=== PATIENT | female | born 1995 | race Caucasian/White ===

== ENCOUNTER → 2016-09-19 | Outpatient (CLI) | payer OTHER ==
[2016-09-19 20:48] LABS: BASO % 0.3 % (0.0-1.0); EOS # 0.1 K/mm3 (0.0-0.50); EOS % 0.8 % (0.0-3.0); LARGE UNSTAINED CELL # 0.2 K/mm3 (0.0-0.4); LARGE UNSTAINED CELL % 1.1 % (0.0-4.0); LYMPH # 2.6 K/mm3 (1.5-6.5); LYMPH % 17.9 % (24.0-44.0); MEAN CORPUSCULAR HEMOGLOBIN 28.5 pg (27.0-33.0); MEAN CORPUSCULAR HGB CONC 33.5 g/dl (32.0-36.5); MEAN CORPUSCULAR VOLUME 85.1 fl (80.0-96.0); MONO # 0.9 K/mm3 (0.0-0.8); MONO % 6.4 % (0.0-5.0); NEUTROPHILS # 10.1 K/mm3 (1.8-7.7); NEUTROPHILS % 73.6 % (36.0-66.0); PLATELET COUNT, AUTOMATED 286 k/mm3 (150-450); RED CELL DISTRIBUTION WIDTH 12.6 % (11.5-14.5); WHITE BLOOD COUNT 13.7 K/mm3 (4.0-10.0)
[2016-09-22 11:07] LABS: HBsAg Prenatal NEGATIVE (NEGATIVE)
[2016-09-22 14:10] LABS: CONTROL LINE INT CTR LINE PRESENT; HIV SCRN NEGATIVE (NEGATIVE); HIV SCRN1 NEGATIVE (NEGATIVE)
== END | disposition home or self-care (01) ==
LOC: M LRY 15:03
PROVIDERS: ATTEND Obstetrics & Gynecology
DX: Z34.81 Encounter for supervision of other normal pregnancy, first trimester (principal); Z36 Encounter for antenatal screening of mother; Z3A.00 Weeks of gestation of pregnancy not specified

== ENCOUNTER → 2016-09-29 | Outpatient (REF) | payer OTHER | END | disposition home or self-care (01) | LOC: M LAB REF 17:05 | PROVIDERS: ATTEND Obstetrics & Gynecology | DX: Z34.01 Encounter for supervision of normal first pregnancy, first trimester (principal); Z36 Encounter for antenatal screening of mother; Z3A.00 Weeks of gestation of pregnancy not specified ==

== ENCOUNTER → 2016-11-10 | Outpatient (CLI) | payer OTHER | LOC: M SMT 10:03 | PROVIDERS: ATTEND Obstetrics & Gynecology | DX: Z34.82 Encounter for supervision of other normal pregnancy, second trimester (principal) ==

== ENCOUNTER → 2016-11-14 | Outpatient (CLI) | payer OTHER | LOC: M LAB 07:30 | PROVIDERS: ATTEND Obstetrics & Gynecology | DX: Z34.81 Encounter for supervision of other normal pregnancy, first trimester (principal); Z36 Encounter for antenatal screening of mother; Z3A.00 Weeks of gestation of pregnancy not specified ==

== ENCOUNTER → 2016-12-04 | Outpatient (CLI) | payer OTHER ==
--- NOTE | 2016-12-05 03:29 | REP ---
Clinical: Anatomical evaluation. Comparison: None . Findings: Examination demonstrates a single live intrauterine in cephalic presentation. motion is identified by technologist. Placenta is noted posteriorly and grade 02/00 without evidence for placenta previa or abruption. Amniotic fluid volume is normal. Cervix measures 3.7 cm in length and appears closed. Gestational age by LMP 19 weeks 2 days with DAVION 04/28/1972 . Gestational age by current measurements 20 weeks 0 days with DAVION 04/23/2017 . FHR equals 144 beats per minute. BPD 4.6 cm 19 weeks 6-day HC 17.4 cm 20 weeks 0 days AC 15.1 cm 20 weeks 2 days FL 3.0 cm 19 weeks 2 days HL 3.2 cm 20 weeks 4 days HC/AC ratio 1.15 Estimated weight 319 grams ( 68th percentile). Anatomical assessment demonstrates normal structures including cranium, choroid plexus, cavum, cerebellum/posterior fossa, facial features, lungs, four-chamber heart/ventricular outflow tracts, diaphragm, stomach, cord insertion/three-vessel cord, kidneys/bladder, spine, and extremities. Impression: Single live intrauterine in cephalic presentation demonstrating appropriate interval growth. Anatomical assessment is complete and normal. Nuchal cord cannot be excluded. Signed by Ric Cuba MD 12/05/2016 03:21 A
== END ==
LOC: M RAD 10:56
PROVIDERS: ATTEND Obstetrics & Gynecology
DX: Z36 Encounter for antenatal screening of mother (principal); Z3A.20 20 weeks gestation of pregnancy

== ENCOUNTER → 2017-01-20 | Outpatient (CLI) | payer OTHER ==
[2017-01-20 13:07] LABS: BASO % 0.1 % (0.0-1.0); EOS # 0.1 K/mm3 (0.0-0.50); EOS % 0.6 % (0.0-3.0); LARGE UNSTAINED CELL # 0.1 K/mm3 (0.0-0.4); LARGE UNSTAINED CELL % 0.8 % (0.0-4.0); LYMPH # 1.5 K/mm3 (1.5-6.5); LYMPH % 9.2 % (24.0-44.0); MEAN CORPUSCULAR HEMOGLOBIN 29.5 pg (27.0-33.0); MEAN CORPUSCULAR HGB CONC 33.9 g/dl (32.0-36.5); MONO # 0.5 K/mm3 (0.0-0.8); MONO % 3.1 % (0.0-5.0); NEUTROPHILS # 13.6 K/mm3 (1.8-7.7); NEUTROPHILS % 86.2 % (36.0-66.0); PLATELET COUNT, AUTOMATED 237 k/mm3 (150-450); RED CELL DISTRIBUTION WIDTH 13.5 % (11.5-14.5); WHITE BLOOD COUNT 15.8 K/mm3 (4.0-10.0)
== END ==
LOC: M SMT 09:11
PROVIDERS: ATTEND Specialist
DX: Z34.02 Encounter for supervision of normal first pregnancy, second trimester (principal); Z36 Encounter for antenatal screening of mother; Z3A.00 Weeks of gestation of pregnancy not specified

== ENCOUNTER → 2017-01-23 | Outpatient (CLI) | payer OTHER | LOC: M LAB 06:47 | PROVIDERS: ATTEND Specialist | DX: Z34.82 Encounter for supervision of other normal pregnancy, second trimester (principal); Z36 Encounter for antenatal screening of mother; Z3A.00 Weeks of gestation of pregnancy not specified ==

== ENCOUNTER → 2017-03-30 | Outpatient (CLI) | payer OTHER ==
[~2017-03-30] MED LIST: ACET50TA PO; ADVI200C5 PO; PRE-TAB3 PO
[2017-03-30 14:09] LABS: MEAN CORPUSCULAR HEMOGLOBIN 29.6 pg (27.0-33.0); MEAN CORPUSCULAR HGB CONC 33.8 g/dl (32.0-36.5); MEAN CORPUSCULAR VOLUME 87.4 fl (80.0-96.0); RED CELL DISTRIBUTION WIDTH 13.7 % (11.5-14.5); WHITE BLOOD COUNT 11.2 K/mm3 (4.0-10.0)
[2017-03-30 14:20] LABS: ALT/SGPT 19 U/L (12-78); AST/SGOT 18 U/L (15-37); BILIRUBIN,TOTAL 0.4 MG/DL (0.2-1.0); CREATININE FOR GFR 0.74 MG/DL (0.55-1.02); GLOMERULAR FILTRATION RATE > 60.0 (>60); URIC ACID 4.6 MG/DL (2.6-6.0)
== END ==
LOC: M SMT 09:11
PROVIDERS: ATTEND Specialist
DX: O13.3 Gestational [pregnancy-induced] hypertension without significant proteinuria, third trimester (principal); Z36 Encounter for antenatal screening of mother; Z3A.00 Weeks of gestation of pregnancy not specified

== ENCOUNTER → 2017-04-02 | Outpatient (CLI) | payer OTHER, SELFPAY ==
--- NOTE | 2017-04-02 15:20 | REP ---
Third trimester obstetric ultrasonography for mild to moderate preeclampsia , well being: There is a single intrauterine gestation in a vertex presentation. There is movement and cardiac activity. The heart rate is 144 beats per minute. The placenta is posterior without placenta previa or abruptio and is grade two maturity. The amniotic fluid volume subjectively is normal. The amniotic fluid index is 16.7 (7.6 - 24.8). The cervix is 3.8 cm length. The maternal adnexa and cul-de-sac are unremarkable. Gestational age by the ultrasound today is 35 weeks 6 days with an DAVION of 05/01/2017. The gestational age by the first ultrasound is 27 weeks 0 days and by LMP 36 weeks 2 days. weight is 2713 grams (5 pounds, 15 ounces). This is the 39th percentile for 36 weeks 2 days. Umbilical artery Doppler assessment: SD ratio 1.92 (1.8 - 2.8) Resistive index 0.4 a (a 0.59 - 0.75) Diastolic flow velocity 18.5 cm/sec. No further evaluation is requested or performed. The patient had a anatomy study previously with no anomalies. Signed by Ryne Angeles MD 04/02/2017 03:12 P
== END ==
LOC: M RAD 13:50
PROVIDERS: ATTEND Advanced Practice Midwife
DX: O14.03 Mild to moderate pre-eclampsia, third trimester (principal); Z36 Encounter for antenatal screening of mother; Z3A.35 35 weeks gestation of pregnancy

== ENCOUNTER → 2017-04-03 | Outpatient (REF) | payer OTHER | LOC: M LAB REF 10:34 | PROVIDERS: ATTEND Advanced Practice Midwife | DX: O13.3 Gestational [pregnancy-induced] hypertension without significant proteinuria, third trimester (principal); Z36 Encounter for antenatal screening of mother; Z3A.00 Weeks of gestation of pregnancy not specified ==

== ENCOUNTER 2017-04-04 22:37 | Outpatient (CLI) | payer OTHER ==
[~2017-04-04] VITALS: Ht 167.6 cm; Wt 115.0 kg
[2017-04-04 22:49] VITALS: BP 136/76
[2017-04-04 23:05] VITALS: BP 138/81
[2017-04-04] MEDS ORDERED: PRE-TAB3 PO (23:14)
[2017-04-04] MEDS ORDERED: ACET50TA PO (23:14)
[2017-04-04 23:20] VITALS: BP 142/79
[2017-04-04 23:36] VITALS: BP 151/79
[2017-04-04 23:50] VITALS: BP 151/72
[2017-04-04 23:54] VITALS: BP 151/72
[2017-04-05 00:05] VITALS: BP 141/67
[2017-04-05] MEDS ORDERED: CETIRIZINE (ZyrTEC) 10 MG TAB PO ONE (00:15)
[2017-04-05 00:20] VITALS: BP 145/74
[2017-04-05 00:31] LABS: MEAN CORPUSCULAR HGB CONC 34.3 g/dl (32.0-36.5); MEAN CORPUSCULAR VOLUME 84.6 fl (80.0-96.0); RED CELL DISTRIBUTION WIDTH 13.5 % (11.5-14.5); WHITE BLOOD COUNT 12.3 K/mm3 (4.0-10.0)
[2017-04-05 00:47] VITALS: BP 137/76
[2017-04-05 01:02] VITALS: BP 141/73
[2017-04-05 01:06] LABS: ALT/SGPT 19 U/L (12-78); AST/SGOT 22 U/L (15-37); BILIRUBIN,TOTAL 0.4 MG/DL (0.2-1.0); CREATININE FOR GFR 0.67 MG/DL (0.55-1.02); GLOMERULAR FILTRATION RATE > 60.0 (>60); URIC ACID 4.4 MG/DL (2.6-6.0)
[2017-04-05 01:18] VITALS: BP 134/80
== END 2017-04-05 01:26 | disposition home or self-care (01) ==
LOC: M LDO 22:37
PROVIDERS: ATTEND Specialist
DX: O14.93 Unspecified pre-eclampsia, third trimester (principal); R51 Headache; Z3A.36 36 weeks gestation of pregnancy

== ENCOUNTER 2017-04-07 08:02 | Inpatient (IN) | payer OTHER ==
[~2017-04-07] VITALS: Ht 168.9 cm; Wt 116.0 kg
[2017-04-07] VITALS (28 sets, daily range): BP systolic 127–180; BP diastolic 60–90
[~2017-04-07 08:02] MED LIST changes: -ADVI200C5 PO
--- NOTE | 2017-04-07 09:51 | HPE ---
DATE OF ADMISSION: 04/07/2017 Екатерина is a 22-year-old, 1, para 0 at 37 weeks gestation with an estimated date of confinement (EDC) of 04/28/2017, based on last menstrual period and confirmed by 9-week ultrasound. She presents to labor and delivery per consult with Dr. Melvin Romero for induction of labor due to preeclampsia. She does report mild headache that has been relieved with Tylenol. She denies blurred vision, right upper quadrant pain and epigastric discomfort. She does report positive movement. Denies vaginal bleeding, leakage of fluid and regular contractions. Her fetus has been active. care initiated at [facility] in the first trimester. course complicated by a history of polycystic ovarian syndrome, rubella nonimmune and preeclampsia with recent diagnosis. OBSTETRICAL HISTORY: Primigravida. OBSTETRICAL LABORATORIES: Blood type B negative, antibody screen negative, rubella equivocal, VDRL nonreactive. Urine culture no growth. Hep B surface antigen negative, HIV negative. Hep C antibody nonreactive. Gonorrhea and chlamydia negative. Gestational diabetic screening elevated at 144 with a 3-hour glucose tolerance test returning normal results. Fasting 87, 1-hour 166, 2-hour 178, 3-hour 110. Her GBS is negative. She did undergo a recent pre-eclamptic profile, returned 24-hour urine of 571 mg protein. Pre-eclamptic labs were normal. PAST MEDICAL HISTORY: 1. PCOS. 2. Seasonal allergies. 3. Childhood varicella. SURGERIES: None. FAMILY HISTORY: Diabetes, hypertension, heart disease, thyroid dysfunction, breast cancer. SOCIAL HISTORY: The patient is . Her is at bedside and supportive. She is a nonsmoker. Denies alcohol and drug use. No history of any sexually transmitted infections. Denies history of abuse: physical, sexual and emotional. ALLERGIES: No known drug allergies. CURRENT MEDICATIONS: vitamins. OBJECTIVE: Temperature 98.5, pulse 88, respirations have not been recorded. Blood pressure 141/67. She is alert and oriented times three, smiling and talkative. heart rate 140 with moderate variability, positive accelerations observed. No decelerations. There is no pattern of regular contractions. Her abdomen is gravid, cephalic presentation. Estimated weight 7 pounds. Sterile vaginal exam: Fingertip dilated, 50% effaced, -3 station. ASSESSMENT: 1. Intrauterine at 37 weeks gestation. heart rate category one. 2. Preeclampsia. PLAN: Admit the patient to labor and delivery. Out of bed ad juan. Regular diet at this time. Laboratories, including a repeat pre-eclamptic profile. Saline lock. Misoprostol 50 mcg by mouth every 4 hours for cervical ripening. I did review risks related to induction, including increased risk of section, intolerance to labor, failed induction. The patient's questions were answered and herself and her decided to proceed with induction of labor at this time. I do anticipate cervical ripening.
[2017-04-07] MEDS: miSOPROStol 50 MCG 1/2 TAB (S0191) PO SCH ×2 (09:53→13:50)
[2017-04-07 10:03] LABS: MEAN CORPUSCULAR HEMOGLOBIN 29.3 pg (27.0-33.0); MEAN CORPUSCULAR HGB CONC 34.6 g/dl (32.0-36.5); MEAN CORPUSCULAR VOLUME 84.7 fl (80.0-96.0); RED CELL DISTRIBUTION WIDTH 13.3 % (11.5-14.5); WHITE BLOOD COUNT 13.3 K/mm3 (4.0-10.0)
[2017-04-07 11:23] LABS: ALT/SGPT 18 U/L (12-78); AST/SGOT 17 U/L (15-37); BILIRUBIN,TOTAL 0.4 MG/DL (0.2-1.0); CREATININE FOR GFR 0.67 MG/DL (0.55-1.02); GLOMERULAR FILTRATION RATE > 60.0 (>60); URIC ACID 5.6 MG/DL (2.6-6.0)
[2017-04-07] MEDS ORDERED: LR 1,000 ML IV SCH (17:46)
[2017-04-07] MEDS ORDERED: OXYTOCIN DRIP 30 UNITS in APPROPRIATE DILUENT 1 EA IV SCH (18:00)
[2017-04-07] MEDS ORDERED: FENTANYL 2MCG/ML ROPIVACAINE 0.2% IN 0.9% NACL 200ML IVBAG As Ordered ONE (18:45)
[2017-04-08] VITALS (17 sets, daily range): BP systolic 133–169; BP diastolic 66–105
[2017-04-08] MEDS ORDERED: OXYTOCIN DRIP 30 UNITS in APPROPRIATE DILUENT 1 EA IV SCH (02:53)
--- NOTE | 2017-04-08 02:57 | PAIN ---
DATE: 04/08/2017 Екатерина is a 22-year-old 1, para 1-0-0-1 now who was admitted to labor and delivery for induction of labor due to preeclampsia. Misoprostol and intravenous (IV) Pitocin was utilized to induce labor. She did utilize an epidural for her labor coping. She progressed to full dilation at 0046 hours, passive descent was employed until she had an urge to push. She pushed to a normal spontaneous vaginal delivery of a live male infant in occiput anterior (OA) position with restitution to left occiput transverse (LOT) position at 0218 hours There was no nuchal cord. The shoulders delivered with gentle downward traction and the corpus immediately followed. The was placed on the maternal abdomen, crying and active. His mouth and nares were bulb suctioned. The cord was clamped times two once pulsations ceased and cut by the father of the baby. A spontaneous expulsion of an intact placenta with three-vessel cord by Almonte mechanism was at 0225 hours. Uterine hemostasis achieved with IV Pitocin rapid infusion and uterine fundal massage. Estimated blood loss 250 mL. Perineum and vagina were inspected, noted to have a second-degree midline laceration. The laceration was repaired with #3-0 Rapide in the usual fashion. [place] male weighed 7 pounds 5 ounces, 3314 grams, score 8 and 9. Mom plans to breastfeed her son, and the family have named him Francis. At the close of delivery, lap counts, instrument counts and needle counts were correct and verified. [facility]
[2017-04-08] MEDS ORDERED: RHOGAM 300 MCG (1500 IU) INJ (J2790) IM SCH (03:00)
[2017-04-08] MEDS ORDERED: ANUSOL HC CREAM 30GM TOP PRN (03:00)
[2017-04-08] MEDS ORDERED: MEASLES,MUMPS,RUBELLA VACCINE INJ (MMR-II) (90707) SC SCH (03:00)
[2017-04-08] MEDS ORDERED: DOCUSATE SODIUM 100 MG CAP PO PRN (03:00)
[2017-04-08] MEDS ORDERED: DIBUCAINE 1% OINTMENT 30GM TOP PRN (03:00)
[2017-04-08] MEDS: IBUPROFEN 800 MG TAB PO PRN ×2 (04:51→18:41)
[2017-04-08] MEDS: PRENATAL VITAMINS CHEWABLE TABLET PO SCH (09:25)
[2017-04-08] MEDS: ACETAMINOPHEN 500 MG TAB PO PRN (11:23)
[2017-04-09 01:43] VITALS: BP 132/69
[2017-04-09 05:34] VITALS: BP 146/80
[2017-04-09] MEDS: IBUPROFEN 800 MG TAB PO PRN ×2 (05:41→16:25)
[2017-04-09] MEDS: PRENATAL VITAMINS CHEWABLE TABLET PO SCH (08:58)
[2017-04-09 10:00] VITALS: BP 158/82
[2017-04-09 14:00] VITALS: BP 122/75
[2017-04-09 17:57] VITALS: BP 153/70
[2017-04-09 22:30] VITALS: BP 136/80
[2017-04-10 02:15] VITALS: BP 133/60
[2017-04-10] MEDS: ACETAMINOPHEN 500 MG TAB PO PRN (05:50)
[2017-04-10 06:09] VITALS: BP 145/93
[2017-04-10] MEDS: PRENATAL VITAMINS CHEWABLE TABLET PO SCH (09:29)
[2017-04-10] MEDS ORDERED: ADVI200C5 PO (10:03)
[2017-04-10] MEDS ORDERED: ACET50TA PO (10:03)
[2017-04-10 10:11] VITALS: BP 133/78
== END 2017-04-10 10:48 | disposition home or self-care (01) | DRG 560 ==
LOC: M LDI 08:02 → M OBS 04-08 04:40
PROVIDERS: ADMIT Advanced Practice Midwife; ATTEND Advanced Practice Midwife
PROC: 3E0P7GC Introduction of Other Therapeutic Substance into Female Reproductive, Via Natural or Artificial Opening (ICD-10-PCS; 2017-04-07)
PROC: 10E0XZZ Delivery of Products of Conception, External Approach (ICD-10-PCS; principal; 2017-04-08)
PROC: 0KQM0ZZ Repair Perineum Muscle, Open Approach (ICD-10-PCS; 2017-04-08)
PROC: 3E0234Z Introduction of Serum, Toxoid and Vaccine into Muscle, Percutaneous Approach (ICD-10-PCS; 2017-04-08)
DX: O14.94 Unspecified pre-eclampsia, complicating childbirth (principal); E28.2 Polycystic ovarian syndrome; O70.1 Second degree perineal laceration during delivery; Z3A.37 37 weeks gestation of pregnancy; Z29.13 Encounter for prophylactic Rho(D) immune globulin; O99.284 Endocrine, nutritional and metabolic diseases complicating childbirth; Z37.0 Single live birth

== ENCOUNTER → 2018-08-27 | Outpatient (REF) | payer OTHER ==
[~2018-08-27] MED LIST changes: -ACET50TA PO; +ADVI200C5 PO; +MAPA500T2 PO
== END ==
LOC: M LAB REF 17:19
PROVIDERS: ATTEND Advanced Practice Midwife
DX: Z12.4 Encounter for screening for malignant neoplasm of cervix (principal)

== ENCOUNTER → 2022-07-28 | Outpatient (CLI) | payer MEDICARE, OTHER ==
[2022-07-28 15:40] LABS: HEMOGLOBIN 13.3 g/dl (12.0-15.5); MEAN CORPUSCULAR HEMOGLOBIN 28.5 pg (27.0-33.0); MEAN CORPUSCULAR HGB CONC 33.3 g/dl (32.0-36.5); MEAN CORPUSCULAR VOLUME 85.7 fl (80.0-96.0); PLATELET COUNT, AUTOMATED 273 10^3/uL (150-450); RED BLOOD COUNT 4.67 10^6/uL (4.00-5.40); WHITE BLOOD COUNT 15.5 10^3/uL (4.0-10.0)
[2022-07-28 15:41] LABS: URIC ACID 3.3 MG/DL (3.1-7.8)
[2022-07-28 15:44] LABS: ALT/SGPT 32 U/L (7.0-40); AST/SGOT 25 U/L (<34); BILIRUBIN,TOTAL 0.7 MG/DL (0.3-1.2); CREATININE FOR GFR 0.61 MG/DL (0.55-1.30); GLOMERULAR FILTRATION RATE > 60.0 (>60); LDH LACTATE DEHYDROGENASE 164 U/L (120-246)
[2022-07-28 15:52] LABS: TOTAL PROTEIN,RANDOM URINE 11.1 MG/DL (0.0-14.0)
[2022-07-28 15:57] LABS: CREATININE,RANDOM URINE 96.1 MG/DL
[2022-07-28 16:14] LABS: HIV 1&2 SCREEN CENTAUR NEGATIVE (NEGATIVE)
[2022-07-28 16:22] LABS: HEPATITIS C VIRUS ABY INDEX 0.2 INDEX (<0.8)
[2022-07-28 17:23] LABS: GC DNA AMPLIFICATION NEGATIVE (NEGATIVE)
== END ==
LOC: M PLALAB 13:44
PROVIDERS: ATTEND Advanced Practice Midwife
DX: Z34.91 Encounter for supervision of normal pregnancy, unspecified, first trimester (principal); Z36.89 Encounter for other specified antenatal screening

== ENCOUNTER → 2022-09-30 | Outpatient (CLI) | payer OTHER | LOC: M WHC 11:14 | PROVIDERS: ATTEND Advanced Practice Midwife | DX: Z34.82 Encounter for supervision of other normal pregnancy, second trimester (principal); Z3A.20 20 weeks gestation of pregnancy ==

== ENCOUNTER → 2022-10-23 | Outpatient (CLI) | payer OTHER | LOC: M WHC 14:22 | PROVIDERS: ATTEND Advanced Practice Midwife | DX: Z34.82 Encounter for supervision of other normal pregnancy, second trimester (principal); Z3A.23 23 weeks gestation of pregnancy ==

== ENCOUNTER → 2022-11-13 | Outpatient (CLI) | payer OTHER ==
[2022-11-13 14:42] LABS: HEMOGLOBIN 11.9 g/dl (12.0-15.5); MEAN CORPUSCULAR HEMOGLOBIN 28.5 pg (27.0-33.0); MEAN CORPUSCULAR HGB CONC 31.3 g/dl (32.0-36.5); MEAN CORPUSCULAR VOLUME 91.1 fl (80.0-96.0); PLATELET COUNT, AUTOMATED 262 10^3/uL (150-450); RED BLOOD COUNT 4.17 10^6/uL (4.00-5.40); WHITE BLOOD COUNT 14.6 10^3/uL (4.0-10.0)
== END ==
LOC: M PLALAB 09:58
PROVIDERS: ATTEND Advanced Practice Midwife
DX: Z34.82 Encounter for supervision of other normal pregnancy, second trimester (principal)

== ENCOUNTER → 2022-11-19 | Outpatient (CLI) | payer OTHER ==
[~2022-11-19] MED LIST changes: +ASPI81CH33 PO
== END ==
LOC: M LAB 07:43
PROVIDERS: ATTEND Advanced Practice Midwife
DX: O99.810 Abnormal glucose complicating pregnancy (principal)

== ENCOUNTER 2022-11-24 18:13 | Outpatient (CLI) | payer OTHER, MEDICARE ==
[~2022-11-24] VITALS: Ht 165.1 cm; Wt 131.0 kg
[~2022-11-24 18:13] MED LIST changes: -ASPI81CH33 PO
[2022-11-24 18:39] VITALS: BP 121/60
[2022-11-24] MEDS ORDERED: ASPI81CH33 PO (18:48)
[2022-11-24] MEDS ORDERED: HOME MED LIST COMPLETE! XX SCH (18:50)
== END 2022-11-24 19:15 | disposition home or self-care (01) ==
LOC: M LDO 18:13
PROVIDERS: ATTEND Advanced Practice Midwife
DX: O36.8130 Decreased fetal movements, third trimester, not applicable or unspecified (principal); Z3A.28 28 weeks gestation of pregnancy; Z87.59 Personal history of other complications of pregnancy, childbirth and the puerperium
CPT/HCPCS: 59025; G0463

== ENCOUNTER → 2023-01-13 | Outpatient (CLI) | payer OTHER ==
[~2023-01-13] MED LIST changes: +ASPI81CH33 PO
== END ==
LOC: M WHC 11:26
PROVIDERS: ATTEND Obstetrics & Gynecology
DX: O24.419 Gestational diabetes mellitus in pregnancy, unspecified control (principal)

== ENCOUNTER → 2023-01-15 | Outpatient (REF) | payer OTHER, MEDICARE | LOC: M SFHCWAGY 12:56 | PROVIDERS: ATTEND Advanced Practice Midwife | DX: O24.415 Gestational diabetes mellitus in pregnancy, controlled by oral hypoglycemic drugs (principal) ==

== ENCOUNTER 2023-01-29 08:57 | Inpatient (IN) | payer MEDICARE, OTHER ==
[2023-01-29] VITALS (16 sets, daily range): BP systolic 112–145; BP diastolic 55–81
[~2023-01-29] VITALS: Ht 165.1 cm; Wt 127.1 kg
[2023-01-29] MEDS ORDERED: METF10004 PO (09:23)
[2023-01-29] MEDS ORDERED: HOME MED LIST COMPLETE! XX SCH (09:45)
[2023-01-29 10:50] LABS: HEMATOCRIT 37.7 % (36.0-47.0); HEMOGLOBIN 12.5 g/dl (12.0-15.5); MEAN CORPUSCULAR HEMOGLOBIN 28.4 pg (27.0-33.0); MEAN CORPUSCULAR HGB CONC 33.2 g/dl (32.0-36.5); MEAN CORPUSCULAR VOLUME 85.7 fl (80.0-96.0); PLATELET COUNT, AUTOMATED 243 10^3/uL (150-450); WHITE BLOOD COUNT 14.9 10^3/uL (4.0-10.0)
[2023-01-29 11:02] LABS: TOTAL PROTEIN,RANDOM URINE 9.4 MG/DL (0.0-14.0)
[2023-01-29 11:07] LABS: CREATININE,RANDOM URINE 60.1 MG/DL
[2023-01-29 11:18] LABS: URIC ACID 4.5 MG/DL (3.1-7.8)
[2023-01-29 11:20] LABS: LDH LACTATE DEHYDROGENASE 151 U/L (120-246)
[2023-01-29 11:21] LABS: ALT/SGPT 17 U/L (7.0-40); AST/SGOT 16 U/L (<34); BILIRUBIN,TOTAL 0.6 MG/DL (0.3-1.2); CREATININE FOR GFR 0.66 MG/DL (0.55-1.30); GLOMERULAR FILTRATION RATE > 60.0 (>60)
[2023-01-29] MEDS ORDERED: LACTATED RINGER'S 1000 ML IV STA (13:22)
[2023-01-29] MEDS ORDERED: TRANEXAMIC ACID INJection 1,000 MG in NS 100 ML IV PRN (13:25)
[2023-01-29] MEDS ORDERED: LR 1,000 ML IV SCH (13:25)
[2023-01-29] MEDS ORDERED: CARBOPROST TROMETHAMINE 250 MCG/ML AMP IM PRN (13:25)
[2023-01-29] MEDS ORDERED: LIDOCAINE 1% MDV 20ML VIAL INFIL PRN (13:25)
[2023-01-29] MEDS ORDERED: OXYTOCIN DRIP 30 UNITS in IV 1 EA IV PRN (13:25)
[2023-01-29] MEDS: miSOPROStol 50MCG 1/2 TABLET SL SCH ×2 (13:42→18:20)
[2023-01-29] MEDS ORDERED: OXYTOCIN DRIP 30 UNITS in IV 1 EA IV SCH (20:25)
[2023-01-30] VITALS (15 sets, daily range): BP systolic 109–176; BP diastolic 53–84; O2SAT 98
[2023-01-30] MEDS ORDERED: DOCUSATE SODIUM 100MG CAPSULE PO PRN (05:00)
[2023-01-30] MEDS ORDERED: ACETAMINOPHEN 500 MG TAB PO PRN (05:00)
[2023-01-30] MEDS ORDERED: OXYTOCIN DRIP 30 UNITS in IV 1 EA IV SCH (05:00)
[2023-01-30] MEDS ORDERED: ACETAMINOPHEN TAB 650MG DOSE (2X325MG) PO PRN (05:00)
[2023-01-30] MEDS ORDERED: ANUSOL HC CREAM 30GM TOP PRN (05:00)
[2023-01-30] MEDS ORDERED: IBUPROFEN 800 MG TAB PO PRN (05:00)
[2023-01-30] MEDS ORDERED: IBUPROFEN 600MG TAB PO PRN (05:00)
[2023-01-30] MEDS ORDERED: LR 1,000 ML IV SCH (05:00)
[2023-01-30] MEDS ORDERED: RHOGAM 300MCG (1500IU) INJ IM SCH (05:00)
[2023-01-30] MEDS ORDERED: DIBUCAINE 1% OINTMENT 30GM TOP PRN (05:00)
[2023-01-30] MEDS ORDERED: ONDANSETRON 4MG 2ML VIAL IV PRN (05:00)
[2023-01-30] MEDS ORDERED: LIDOCAINE 1% MDV 20ML VIAL INFIL ONE (05:10)
[2023-01-30] MEDS: PRENATAL VITAMINS CHEWABLE TABLET PO SCH (08:29)
[2023-01-31 06:00] VITALS: BP 131/68; O2SAT 97
[2023-01-31] MEDS: PRENATAL VITAMINS CHEWABLE TABLET PO SCH (07:56)
[2023-02-01] MEDS ORDERED: MEASLES,MUMPS,RUBELLA VACCINE INJ (MMR-II) SC.IMMUN ONE (09:00)
== END 2023-01-31 17:20 | disposition home or self-care (01) | DRG 807 ==
LOC: M LDI 08:57 → M OBS 01-30 06:55
PROVIDERS: ADMIT Obstetrics & Gynecology; ATTEND Obstetrics & Gynecology
PROC: 3E033VJ Introduction of Other Hormone into Peripheral Vein, Percutaneous Approach (ICD-10-PCS; 2023-01-29)
PROC: 10E0XZZ Delivery of Products of Conception, External Approach (ICD-10-PCS; principal; 2023-01-30)
PROC: 0HQ9XZZ Repair Perineum Skin, External Approach (ICD-10-PCS; 2023-01-30)
PROC: 10907ZC Drainage of Amniotic Fluid, Therapeutic from Products of Conception, Via Natural or Artificial Opening (ICD-10-PCS; 2023-01-30)
DX: O13.4 Gestational [pregnancy-induced] hypertension without significant proteinuria, complicating childbirth (principal); Z37.0 Single live birth; Z3A.37 37 weeks gestation of pregnancy; O24.425 Gestational diabetes mellitus in childbirth, controlled by oral hypoglycemic drugs; Z79.84 Long term (current) use of oral hypoglycemic drugs; O70.0 First degree perineal laceration during delivery

== ENCOUNTER → 2023-11-06 | Outpatient (REF) | payer OTHER, MEDICARE ==
[~2023-11-06] MED LIST changes: +METF10004 PO
== END ==
LOC: M SFHCWAGY 13:03
PROVIDERS: ATTEND Obstetrics & Gynecology
DX: Z12.4 Encounter for screening for malignant neoplasm of cervix (principal)
CPT/HCPCS: 87624; G0123

== ENCOUNTER 2023-12-07 14:42 | Day surgery (SDC) | payer MEDICARE, OTHER ==
[~2023-12-07] VITALS: Ht 165.1 cm; Wt 128.4 kg
[2023-12-07] MEDS: KETOROLAC 30 MG/ML 1ML VIAL IV ONE (15:06)
[2023-12-07] MEDS ORDERED: KETOROLAC 60MG 2ML VIAL As Ordered ONE (15:56)
[2023-12-07] MEDS ORDERED: fentaNYL 100 MCG/2 ML INJECTION As Ordered ONE (15:56)
[2023-12-07] MEDS ORDERED: propofoL 200 MG/20 ML VIAL As Ordered ONE (15:56)
[2023-12-07] MEDS ORDERED: MIDAZOLAM INJ 2MG/2ML VIAL As Ordered ONE (15:56)
[2023-12-07] MEDS ORDERED: ONDANSETRON 4MG 2ML VIAL As Ordered ONE (15:56)
[2023-12-07] MEDS ORDERED: LIDOCAINE 2% 100MG/5ML SDV (FOR ANES.) As Ordered ONE (15:57)
[2023-12-07] MEDS: ISOVUE-300 61% 100ML VIAL As Ordered ONE (16:13)
[2023-12-07] MEDS: LIDOCAINE 2% 5ML JELLY UROJET As Ordered ONE (16:28)
[2023-12-07] MEDS ORDERED: PYRI1TAB5 PO (16:32)
[2023-12-07] MEDS ORDERED: MACR100C43 PO (16:32)
[2023-12-07] MEDS ORDERED: OXYB5TAB14 PO (16:32)
[2023-12-07 17:28] VITALS: BP 132/68; TEMP 98.5; O2SAT 100
== END 2023-12-07 17:35 | disposition home or self-care (01) ==
LOC: M SDC 14:42
PROVIDERS: ATTEND Urology
DX: N20.1 Calculus of ureter (principal); K21.9 Gastro-esophageal reflux disease without esophagitis; E66.9 Obesity, unspecified
CPT/HCPCS: 52332; 52351; 74420; 81025; C1769; C2617; J1100; J1885; J2250; J2405; J3010; Q9967

== ENCOUNTER → 2023-12-16 | Outpatient (REF) | payer MEDICARE ==
[~2023-12-16] MED LIST changes: +MACR100C43 PO; +OXYB5TAB14 PO; +PYRI1TAB5 PO
[2023-12-16 17:45] LABS: APPEARANCE, URINE HAZY (CLEAR); BACTERIA, URINE AUTO NEGATIVE (NEGATIVE); BILIRUBIN, URINE AUTO NEGATIVE (NEGATIVE); BLOOD, URINE BLOOD 2+ (NEGATIVE); COLOR, URINE YELLOW (YELLOW); GLUCOSE, URINE (UA) AUTO NEGATIVE (NEGATIVE); KETONE, URINE AUTO NEGATIVE (NEGATIVE); LEUKOCYTE ESTERASE, URINE AUTO 2+ (NEGATIVE); MUCUS, URINE SMALL (NEGATIVE); NITRITE, URINE AUTO NEGATIVE (NEGATIVE); PROTEIN, URINE AUTO 2+ mg/dL (NEGATIVE); RBC, URINE AUTO TNTC /HPF (0-3); SPECIFIC GRAVITY URINE AUTO 1.019 (1.002-1.035); SQUAMOUS EPITHELIAL CELL UR AU 3 /HPF (0-6); UROBILINOGEN, URINE AUTO 0.2 mg/dL (0.0-2.0); WBC, URINE AUTO 18 /HPF (0-3)
== END ==
LOC: M LABSMT 14:35
PROVIDERS: ATTEND Urology
DX: N20.1 Calculus of ureter (principal)

== ENCOUNTER → 2023-12-28 | Outpatient (REF) | payer MEDICARE ==
[2023-12-28 15:17] LABS: APPEARANCE, URINE HAZY (CLEAR); BACTERIA, URINE AUTO 1+ (NEGATIVE); BILIRUBIN, URINE AUTO NEGATIVE (NEGATIVE); BLOOD, URINE BLOOD 2+ (NEGATIVE); COLOR, URINE YELLOW (YELLOW); GLUCOSE, URINE (UA) AUTO NEGATIVE (NEGATIVE); KETONE, URINE AUTO NEGATIVE (NEGATIVE); LEUKOCYTE ESTERASE, URINE AUTO 3+ (NEGATIVE); MUCUS, URINE SMALL (NEGATIVE); NITRITE, URINE AUTO NEGATIVE (NEGATIVE); PROTEIN, URINE AUTO 2+ mg/dL (NEGATIVE); RBC, URINE AUTO 106 /HPF (0-3); SPECIFIC GRAVITY URINE AUTO 1.016 (1.002-1.035); SQUAMOUS EPITHELIAL CELL UR AU 2 /HPF (0-6); TRANSITIONAL EPITHELIAL AUTO 1 /HPF; UROBILINOGEN, URINE AUTO 0.2 mg/dL (0.0-2.0); WBC, URINE AUTO 125 /HPF (0-3)
== END ==
LOC: M SMT 14:27
PROVIDERS: ATTEND Physician Assistant
DX: R30.0 Dysuria (principal)

== ENCOUNTER 2024-01-14 12:19 | Day surgery (SDC) | payer MEDICARE, OTHER ==
[~2024-01-14] VITALS: Ht 165.1 cm; Wt 127.4 kg
[~2024-01-14 12:19] MED LIST changes: +MIDAZOLAM INJ 2MG/2ML VIAL As Ordered ONE; +fentaNYL 100 MCG/2 ML INJECTION As Ordered ONE; +propofoL 200 MG/20 ML VIAL As Ordered ONE
[2024-01-14] MEDS ORDERED: LR 1,000 ML IV SCH (13:00)
[2024-01-14] MEDS: ceFAZolin SOD 2 GM in IV 1 EA IV ONE (13:36)
[2024-01-14] MEDS: ceFAZolin SOD 1 GM in D5W MINI-BAG PLUS 50 ML IV ONE (13:36)
[2024-01-14 14:22] VITALS: BP 130/68; TEMP 97.5; O2SAT 99
== END 2024-01-14 14:34 | disposition home or self-care (01) ==
LOC: M SDC 12:19
PROVIDERS: ATTEND Urology
DX: N20.0 Calculus of kidney (principal); K76.0 Fatty (change of) liver, not elsewhere classified
CPT/HCPCS: 50590; 74018; 81025; J0690; J2250; J3010

== ENCOUNTER → 2024-02-01 | Outpatient (CLI) | payer OTHER ==
[~2024-02-01] MED LIST changes: -MIDAZOLAM INJ 2MG/2ML VIAL As Ordered ONE; -fentaNYL 100 MCG/2 ML INJECTION As Ordered ONE; -propofoL 200 MG/20 ML VIAL As Ordered ONE
== END ==
LOC: M RAD 16:25
PROVIDERS: ATTEND Urology
DX: N20.1 Calculus of ureter (principal)

== ENCOUNTER → 2024-02-10 | Outpatient (CLI) | payer OTHER ==
[2024-02-10 10:26] LABS: HEMATOCRIT 43.4 % (36.0-47.0); HEMOGLOBIN 13.9 g/dl (12.0-15.5); MEAN CORPUSCULAR HEMOGLOBIN 28.1 pg (27.0-33.0); MEAN CORPUSCULAR VOLUME 87.9 fl (80.0-96.0); PLATELET COUNT, AUTOMATED 297 10^3/uL (150-450); RED BLOOD COUNT 4.94 10^6/uL (4.00-5.40); WHITE BLOOD COUNT 9.8 10^3/uL (4.0-10.0)
[2024-02-10 10:57] LABS: ALBUMIN 3.5 G/DL (3.2-5.2); ALKALINE PHOSPHATASE 146 U/L (46-116); ALT/SGPT 38 U/L (7.0-40); AST/SGOT 22 U/L (<34); BILIRUBIN,TOTAL 0.9 MG/DL (0.3-1.2); BLOOD UREA NITROGEN 15 MG/DL (9-23); CALCIUM LEVEL 8.5 MG/DL (8.5-10.1); CARBON DIOXIDE LEVEL 22 MMOL/L (20-31); CHLORIDE LEVEL 112 MMOL/L (98-107); CREATININE FOR GFR 0.77 MG/DL (0.55-1.30); GLOMERULAR FILTRATION RATE > 60.0 (>60); GLUCOSE, FASTING 94 MG/DL (60-100); POTASSIUM SERUM 4.2 MMOL/L (3.5-5.1); SODIUM LEVEL 140 MMOL/L (136-145); TOTAL PROTEIN 6.8 G/DL (5.7-8.2)
== END ==
LOC: M LAB 09:29
PROVIDERS: ATTEND Urology
DX: Z96.0 Presence of urogenital implants (principal)

== ENCOUNTER 2024-02-15 10:34 | Day surgery (SDC) | payer OTHER ==
[~2024-02-15] VITALS: Ht 165.1 cm; Wt 128.8 kg
[~2024-02-15 10:34] MED LIST changes: +LIDOCAINE 2% 100MG/5ML SDV (FOR ANES.) As Ordered ONE; +ONDANSETRON 4MG 2ML VIAL As Ordered ONE; +UNRESOLVED CLARIFICATION ENTRY XX SCH; +propofoL 200 MG/20 ML VIAL As Ordered ONE
[2024-02-15] MEDS: ceFAZolin SOD 1 GM in D5W MINI-BAG PLUS 50 ML IV ONE (11:20)
[2024-02-15] MEDS: ceFAZolin SOD 2 GM in IV 1 EA IV ONE (11:20)
[2024-02-15] MEDS ORDERED: fentaNYL 100 MCG/2 ML INJECTION As Ordered ONE (11:31)
[2024-02-15] MEDS ORDERED: MIDAZOLAM INJ 2MG/2ML VIAL As Ordered ONE (11:31)
[2024-02-15] MEDS ORDERED: LR 1,000 ML IV SCH ×2 (11:50→13:15)
[2024-02-15] MEDS ORDERED: ACETAMINOPHEN 1000MG 100ML IV BAG As Ordered ONE (12:32)
[2024-02-15] MEDS: ISOVUE-300 61% 100ML VIAL As Ordered ONE (12:45)
[2024-02-15] MEDS ORDERED: HYDR-3713 PO (13:13)
[2024-02-15] MEDS ORDERED: oxyCODONE 5MG TAB PO PRN (13:15)
[2024-02-15] MEDS ORDERED: ONDANSETRON 4MG 2ML VIAL IV PRN (13:15)
[2024-02-15] MEDS ORDERED: HYDROMORPHONE HCL 0.5 MG/ 0.5 ML SYRINGE IV PRN (13:15)
[2024-02-15] MEDS ORDERED: fentaNYL 100 MCG/2 ML INJECTION IV PRN (13:15)
[2024-02-15 14:10] VITALS: BP 141/82; TEMP 97.7; O2SAT 98
== END 2024-02-15 14:19 | disposition home or self-care (01) ==
LOC: M SDC 10:34
PROVIDERS: ATTEND Urology
DX: N20.0 Calculus of kidney (principal); K76.0 Fatty (change of) liver, not elsewhere classified; Z87.442 Personal history of urinary calculi
CPT/HCPCS: 52356; 76000; 81025; 82365; C1769; C1894; C2617; J0131; J0690; J1100; J2250; J2405; J3010; Q9967